=== PATIENT | male | born 1965 | race Caucasian/White ===

== ENCOUNTER → 2017-12-02 | Day surgery (SDC) | payer BC ==
[~2017-12-02] VITALS: Ht 188 cm; Wt 113.2 kg
[~2017-12-02] MED LIST: ACETAMINOPHEN 1000 MG/100 ML 100 ML IV ONE; ACETAMINOPHEN/HYDROcodone 325 MG/5 MG TAB PO PRN; BUPIVACAINE/EPINEPHRINE 0.5% PF 10 ML VIAL ONE; BUPIVACAINE/EPINEPHRINE 0.5% PF 30 ML VIAL ONE; CHLORHEXIDINE GLUCONATE 2 % 1 PACK (2 CLOTHS) TOPICAL PRN; CIPROFLOXACIN/DEXT 400 MG/200 ML IV SCH; DEXAMETHASONE SOD PHOS 4 MG/ML VIAL IV ONE; DO NOT ADM ANY ANTICOAGULANT DRUGS PRN; GLYCOPYRROLATE 1 MG/5 ML SYRINGE IV PUSH ONE; LACTATED RINGER'S 1000 ML IV PRN; LIDOCAINE HCL 1% PF 5 ML SYRINGE OTHER ONE; METOPROLOL TARTRATE 25 MG TAB PO PRN; MIDAZOLAM HCL 2 MG/2 ML VIAL ONE; MUPIROCIN 2% OINT 22 GM TUBE ONE; NEOSTIGMINE 5 MG/5 ML SYRINGE IV PUSH ONE; OLME1TAB PO; ONDANSETRON HCL 4 MG/2 ML VIAL IV ONE; POVIDONE IODINE 5% (ANTISEPSIS KIT) 4 APPLICATIONS EACH NARE PRN; PROPOFOL 200 MG/20 ML AMP IV ONE; ROCURONIUM INJ 100 MG/10 ML VIAL IV ONE; SODIUM CHLORID 0.9% 500 ML IV PRN; ePHEDrine/NS 25 MG/5 ML SYRINGE IV ONE
[2017-12-02 11:45] VITALS: BP 130/79; PULSE 79; RESP 20; TEMP 98; O2SAT 96
--- NOTE | 2017-12-02 15:16 | EKG ---
Date Performed: 12/02/2017 Time Performed: 06:39:18 PTAGE: 52 years EKG: Sinus rhythm NORMAL ECG NO PREVIOUS TRACING DOCTOR: Linda Vergara Interpretating Date/Time 12/02/2017 15:15:47
--- NOTE | 2017-12-07 20:05 | PD.OP ---
Operative Report Date of Surgery: Dec 02, 2017 Preoperative Diagnosis: (1) Open nasal wound Postoperative Diagnosis: (1) Open nasal wound Procedure: Nasolabial flap to nasal tip (81965) Surgeon: Mathew Hadley Environmental Services Technician(s): . Operation and Findings: This is a 52-year-old male who presented to clinic status post Mohs excision of a nasal tip skin lesion, with a roughly 2 cm in diameter wound down to denuded cartilage involving the superior columella and nasal tip. Risks benefits alternative treatments were discussed. All questions answered and the patient expressed understanding. Patient elected to assume the risks of nasolabial flap reconstruction. Informed consent obtained. Surgical site was marked in the preoperative holding bay. The patient was given antibiotics on-call to the operating room. The patient was taken to the operating room and all pressure points were padded. A surgical timeout was performed. After the smooth induction of general anesthesia, the surgical sites were instilled with half percent Marcaine with epinephrine. The surgical site was prepped and draped in the usual sterile fashion. A right nasolabial flap was marked. It was roughly 2 cm in diameter, corresponding to the nasal tip wound. The nasal tip wound was re-created and freshened. The circumferential skin edges were undermined in a plane superficial to the perichondrium. A nasolabial flap was then raised in a plane superficial to the smas. Hemostasis was ensured using bipolar cautery. It was then transposed to the nasal tip and secured with multiple interrupted 5-0 PDS. The posterior aspect of the nasolabial donor site was then undermined 2-3 cm to allow for tension-free closure. Hemostasis was ensured. The donor site was then brought in apposition with multiple interrupted deep dermal 5-0 Vicryl followed by a simple running 5-0 Prolene. The surgical sites were cleaned and dressed with mupirocin ointment, Xeroform gauze, and dry gauze 4 x 4's. At the end of the case the nasal labial flap exhibited excellent color and cap refill. All needle sponge and instrument counts were correct 2. The patient arrived stable and doing well to the PACU. Mathew Hadley MD Dec 07, 2017 20:05
== END | disposition home or self-care (01) ==
LOC: HSDC 05:54
PROVIDERS: ATTEND Student in an Organized Health Care Education/Training Program
DX: C44.311 Basal cell carcinoma of skin of nose (principal); I10 Essential (primary) hypertension
CPT/HCPCS: 00300; 15576; 93005; J0131; J1100; J2250; J2405; J2710; J3010; J7120